=== PATIENT | female | born 1985 | race Caucasian/White ===

== ENCOUNTER 2021-09-18 15:02 | Outpatient (CLI) | payer OTHER | END 2021-09-18 15:03 | disposition home or self-care (01) | LOC: CSHULT 15:02 | PROVIDERS: ATTEND Family Medicine | DX: O09.892 Supervision of other high risk pregnancies, second trimester (principal); Z3A.20 20 weeks gestation of pregnancy | CPT/HCPCS: 76805 ==

== ENCOUNTER 2021-12-25 12:06 | Observation (INO) | payer OTHER ==
[2021-12-25 13:13] VITALS: BMI 36.1
[2021-12-25 13:35] LABS: Hemoglobin 10.2 g/dL (12.0-15.5); Mean Corpuscular HGB CONC 34.5 g/dL (32.0-36.0); Mean Corpuscular Hemoglobin 32.4 pg (27.0-33.0); Mean Platelet Volume 11.4 fl (7.4-10.4); Platelet Count 203 10x3/uL (150-450); RBC Distribution Width 13.5 % (11.5-14.5); Red Blood Cell (RBC) Count 3.15 10x6/uL (3.90-5.03); White Blood Cell (WBC) Count 10.3 10x3/uL (3.5-10.5)
[2021-12-25 13:53] LABS: ALT (SGPT) 11 U/L (8-55); AST (SGOT) 17 U/L (5-34); Albumin 3.3 g/dL (3.5-5.0); Alkaline Phosphatase 150 U/L (40-110); Anion Gap 13 mmol/L (10-20); BUN (Urea Nitrogen) 8 mg/dL (7.0-18.7); Bilirubin, Total 0.3 mg/dL (0.2-1.2); Calc. Creatinine Clearance 160 mL/min (70-130); Calcium 8.9 mg/dL (7.8-10.44); Carbon Dioxide 19 mmol/L (22-29); Chloride 110 mmol/L (98-107); Estimated GFR 113; Glucose 91 mg/dL (70-105); Potassium 3.4 mmol/L (3.5-5.1); Protein, Total 6.3 g/dL (6.0-8.3); Sodium 139 mmol/L (136-145)
[2021-12-25] MEDS ORDERED: Promethazine HCl 25 MG/ML VIAL IM PRN (17:53)
[2021-12-25] MEDS ORDERED: Acetaminophen 500 MG TAB PO PRN (17:53)
[2021-12-25] MEDS ORDERED: hydrALAZINE 20 MG/ML VIAL SLOW IVP PRN (17:53)
== END 2021-12-26 08:51 | disposition home or self-care (01) ==
LOC: CSHLD/OP 12:06 → CSHLD 20:03 → INTOOBSV 20:03
PROVIDERS: ADMIT Family Medicine; ATTEND Family Medicine
DX: O99.891 Other specified diseases and conditions complicating pregnancy (principal); R03.0 Elevated blood-pressure reading, without diagnosis of hypertension; O09.523 Supervision of elderly multigravida, third trimester; Z3A.35 35 weeks gestation of pregnancy
CPT/HCPCS: 59025; 76815; 76819; 80053; 82570; 84156; 85027; 99285

== ENCOUNTER 2022-01-07 16:45 | Inpatient (IN) | payer OTHER ==
[~2022-01-07 16:45] MED LIST: Bupivacaine 0.25% HCL 30 ML VIAL ONE
[2022-01-07] MEDS ORDERED: Calcium Gluc 4.6 MEQ/10 ML (100 MG/ML) SLOW IVP PRN (17:57)
[2022-01-07] MEDS ORDERED: Promethazine HCl 25 MG/ML VIAL IM PRN (17:57)
[2022-01-07] MEDS ORDERED: HYDROcodone/Acetaminophen 5/325 mg Tablet PO PRN (17:57)
[2022-01-07] MEDS ORDERED: Ondansetron PF 4 MG/2 ML Vial IVP PRN (17:57)
[2022-01-07] MEDS ORDERED: Labetalol HCl 100 MG/20 ML VIAL SLOW IVP PRN ×2 (17:57)
[2022-01-07] MEDS ORDERED: Lorazepam 2 MG/ML VIAL SLOW IVP PRN (17:57)
[2022-01-07] MEDS ORDERED: Carboprost 250 MCG/ML AMP IM PRN (17:57)
[2022-01-07] MEDS ORDERED: Ibuprofen 800 MG TAB PO PRN (17:57)
[2022-01-07] MEDS ORDERED: Misoprostol 200 MCG TAB PR PRN (17:57)
[2022-01-07] MEDS ORDERED: Diphenoxylate HCl/Atropine Tablet PO PRN (17:57)
[2022-01-07] MEDS ORDERED: Acetaminophen 500 MG TAB PO PRN (17:57)
[2022-01-07] MEDS ORDERED: Lidocaine 1% (PF) 30 ML VIAL SC PRN (17:57)
[2022-01-07] MEDS ORDERED: hydrALAZINE 20 MG/ML VIAL SLOW IVP PRN ×3 (17:57)
[2022-01-07] MEDS ORDERED: Butorphanol Tartrate 1 MG/ML VIAL SLOW IVP PRN (17:57)
[2022-01-07] MEDS ORDERED: Lactated Ringer's 1,000 ML IV SCH (18:00)
[2022-01-07] MEDS ORDERED: Magnesium Sulfate 20 gm/500 ml 20 GM/500 ML BAG IVPB SCH (18:00)
[2022-01-07] MEDS ORDERED: NS w/ Oxytocin 30 units 500 ML IV SCH ×2 (18:00)
[2022-01-07 18:12] LABS: Hemoglobin 10.3 g/dL (12.0-15.5); Mean Corpuscular HGB CONC 34.3 g/dL (32.0-36.0); Mean Corpuscular Hemoglobin 31.8 pg (27.0-33.0); Mean Corpuscular Volume 92.6 fl (81.6-98.3); Platelet Count 219 10x3/uL (150-450); RBC Distribution Width 13.5 % (11.5-14.5); Red Blood Cell (RBC) Count 3.24 10x6/uL (3.90-5.03); White Blood Cell (WBC) Count 9.4 10x3/uL (3.5-10.5)
[2022-01-07 18:22] LABS: ALT (SGPT) 15 U/L (8-55); AST (SGOT) 21 U/L (5-34); Albumin 3.5 g/dL (3.5-5.0); Alkaline Phosphatase 166 U/L (40-110); Anion Gap 16 mmol/L (10-20); BUN (Urea Nitrogen) 12 mg/dL (7.0-18.7); Bilirubin, Total 0.2 mg/dL (0.2-1.2); Calc. Creatinine Clearance 0 mL/min (70-130); Calcium 9.1 mg/dL (7.8-10.44); Carbon Dioxide 17 mmol/L (22-29); Chloride 109 mmol/L (98-107); Estimated GFR 104; Globulin 2.8 g/dL (2.4-3.5); Glucose 113 mg/dL (70-105); Potassium 4.2 mmol/L (3.5-5.1); Protein, Total 6.3 g/dL (6.0-8.3); Sodium 138 mmol/L (136-145)
[2022-01-07 18:41] LABS: HBSAg Index 0.15 S/CO (0-0.99); Hep B Surf Ag Non-Reactive S/CO (NonReactive)
[2022-01-07 18:43] LABS: Syphilis Antibody Nonreactive (Nonreactive); Syphilis Antibody Index 0.03 S/CO (<1.00 Non-Reactive)
[2022-01-07 19:19] VITALS: BMI 37.2
[2022-01-07] MEDS: Misoprostol 100 MCG TAB VAG SCH ×2 (19:39→22:54)
[2022-01-07 20:02] LABS: SARS-CoV-2 NAA Rapid Test Not Detected (NotDetected)
[2022-01-07] MEDS ORDERED: Labetalol HCl 100 MG TAB PO SCH (22:00)
[2022-01-08] MEDS ORDERED: Fentanyl 2 mcg/Bup 0.1% Cadd 100 ML ONE (03:09)
[2022-01-08] MEDS ORDERED: Lactated Ringer's 500 ML IV PRN (04:19)
[2022-01-08] MEDS ORDERED: Acetaminophen 325 MG TAB PO PRN (04:19)
[2022-01-08] MEDS ORDERED: Ondansetron PF 4 MG/2 ML Vial IVP PRN ×2 (04:19→11:31)
[2022-01-08] MEDS ORDERED: diphenhydrAMINE 50 MG/ML VIAL IVP PRN (04:19)
[2022-01-08] MEDS ORDERED: Naloxone HCl 0.4 mg/ml Vial IVP PRN ×2 (04:19)
[2022-01-08] MEDS ORDERED: ePHEDrine Sulfate 50 MG/10 ML VIAL SLOW IVP PRN (04:19)
[2022-01-08] MEDS ORDERED: Promethazine HCl 25 MG/ML VIAL IM PRN ×2 (04:19→11:31)
[2022-01-08] MEDS ORDERED: Moisturizing Cream (Eucerin) 113 GM JAR TOP PRN (04:19)
[2022-01-08] MEDS ORDERED: Fentanyl 2 mcg/Bupivacaine 0.1% Cassette 100 ML EPIDURAL SCH (04:30)
[2022-01-08] MEDS ORDERED: Communication Order-Pharmacy FS SCH (04:30)
[2022-01-08] MEDS: Labetalol HCl 100 MG TAB PO SCH ×3 (06:54→22:00)
[2022-01-08] MEDS ORDERED: Calcium Gluc 4.6 MEQ/10 ML (100 MG/ML) SLOW IVP PRN (11:31)
[2022-01-08] MEDS ORDERED: Benzocaine-Menthol 82.5 ML CAN TOP PRN (11:31)
[2022-01-08] MEDS ORDERED: Boostrix 0.5 ML (Tdap) VIAL (>/=7 yrs of age) IM ONE (11:31)
[2022-01-08] MEDS ORDERED: Labetalol HCl 100 MG/20 ML VIAL SLOW IVP PRN (11:31)
[2022-01-08] MEDS ORDERED: Lanolin Ointment 7 GM TUBE TOP PRN (11:31)
[2022-01-08] MEDS ORDERED: Bisacodyl 10 MG SUPP PR PRN (11:31)
[2022-01-08] MEDS ORDERED: Lorazepam 2 MG/ML VIAL SLOW IVP PRN (11:31)
[2022-01-08] MEDS ORDERED: Milk Of Magnesia 30 ML UDCUP PO PRN (11:31)
[2022-01-08] MEDS ORDERED: hydrALAZINE 20 MG/ML VIAL SLOW IVP PRN (11:31)
[2022-01-08] MEDS ORDERED: HYDROcodone/Acetaminophen 5/325 mg Tablet PO PRN (11:31)
[2022-01-08] MEDS ORDERED: diphenhydrAMINE 25 MG CAP PO PRN (11:31)
[2022-01-08] MEDS ORDERED: Ondansetron PF 4 MG/2 ML Vial ONE (11:39)
[2022-01-08] MEDS: Magnesium Sulfate 20 gm/500 ml 20 GM/500 ML BAG IVPB SCH ×2 (12:13→22:01)
[2022-01-08] MEDS: Ibuprofen 800 MG TAB PO SCH ×2 (14:20→22:00)
[2022-01-08] MEDS ORDERED: Acetaminophen 500 MG TAB PO PRN (20:11)
[2022-01-08] MEDS: Docusate 100 MG CAP PO SCH (22:02)
[2022-01-09] MEDS: Ibuprofen 800 MG TAB PO SCH ×3 (06:06→21:48)
[2022-01-09] MEDS: Labetalol HCl 100 MG TAB PO SCH ×4 (06:06→21:46)
[2022-01-09] MEDS ORDERED: hydrALAZINE 20 MG/ML VIAL SLOW IVP PRN (08:20)
[2022-01-09] MEDS: Docusate 100 MG CAP PO SCH ×2 (10:53→21:49)
[2022-01-09] MEDS: Prenatal Vitamin 1 TAB PO SCH (10:53)
[2022-01-09] MEDS: Ferrous Sulfate 325 MG TAB PO SCH ×2 (22:21→22:22)
[2022-01-09] MEDS: Misoprostol 100 MCG TAB VAG SCH ×2 (22:45→22:46)
[2022-01-10] MEDS: Labetalol HCl 100 MG TAB PO SCH ×4 (06:15→22:14)
[2022-01-10] MEDS: Ibuprofen 800 MG TAB PO SCH ×3 (06:16→22:13)
[2022-01-10] MEDS: Ferrous Sulfate 325 MG TAB PO SCH ×2 (07:09→15:39)
[2022-01-10] MEDS: Docusate 100 MG CAP PO SCH ×2 (08:13→22:13)
[2022-01-10] MEDS: Prenatal Vitamin 1 TAB PO SCH (08:13)
[2022-01-11] MEDS: Ibuprofen 800 MG TAB PO SCH ×2 (05:43→13:41)
[2022-01-11] MEDS: Labetalol HCl 100 MG TAB PO SCH ×2 (05:51→13:41)
[2022-01-11] MEDS: Docusate 100 MG CAP PO SCH (08:21)
[2022-01-11] MEDS: Prenatal Vitamin 1 TAB PO SCH (08:21)
[2022-01-11 12:59] VITALS: TEMP 98.5
[2022-01-11 13:00] VITALS: BP 160/84
== END 2022-01-11 14:50 | disposition home or self-care (01) | DRG 807 ==
LOC: CSHLD 16:45 → CSHPP 01-09 10:06
PROVIDERS: ADMIT Family Medicine; ATTEND Family Medicine
PROC: 10E0XZZ Delivery of Products of Conception, External Approach (ICD-10-PCS; principal; 2022-01-08)
PROC: 10907ZC Drainage of Amniotic Fluid, Therapeutic from Products of Conception, Via Natural or Artificial Opening (ICD-10-PCS; 2022-01-08)
PROC: 3E0P7VZ Introduction of Hormone into Female Reproductive, Via Natural or Artificial Opening (ICD-10-PCS; 2022-01-08)
PROC: 3E033VJ Introduction of Other Hormone into Peripheral Vein, Percutaneous Approach (ICD-10-PCS; 2022-01-08)
DX: O14.14 Severe pre-eclampsia complicating childbirth (principal); Z37.0 Single live birth; Z3A.37 37 weeks gestation of pregnancy; Z20.822 Contact with and (suspected) exposure to COVID-19; Z91.09 Other allergy status, other than to drugs and biological substances; Z79.899 Other long term (current) drug therapy
CPT/HCPCS: 36415; 51702; 80053; 85027; 86780; 86850; 86900; 86901; 87340; J0360; J2405; J2590; J3475; S0020; U0002